=== PATIENT | male | born 1955 | race American Indian/Alaskan Native ===

== ENCOUNTER 2018-01-31 13:03 | Emergency (ER) | payer OTHER ==
[~2018-01-31] VITALS: Ht 160 cm; Wt 73.9 kg
[~2018-01-31 13:03] MED LIST: AMOX875 PO; ASPI325 PO; ATOR10 PO; ATOR40TA PO; BP MED; BUPR150ER PO; CILO100 PO; CIPR500 PO; CYCL10 PO; Cipro500 MG PO; FAMO20 PO; FURO20 PO; HYDACE5 PO; HYDCHL25 PO; IBUP800 PO; LISI20 PO; LORA1 PO; Loperamide2 MG PO; NAPR500 PO; NAPR550 PO; NICO21TP TOP; ONDA8ODT MM; OXYACE5T PO; PANT40 PO; Potassium Chlo20 ME1 PO; ROBITUSSIN OTC; RXCYCL10 PO; RXHYDACE PO; RXTRAM50 PO; SUCR1 PO; SULTRIDS PO; TAMS.4ER PO; TERB250; TRAM50 PO; TYLENOL
[2018-01-31 18:12] LABS: Adenovirus F 40/41 Not Detected (NOT DETECT); Astrovirus Not Detected (NOT DETECT); Campylobacter Sp Not Detected (NOT DETECT); Cryptosporidium Not Detected (NOT DETECT); Cyclospora Cayetanensis Not Detected (NOT DETECT); E. Coli O157 Not Detected (NOT DETECT); Entamoeba Histolytica Not Detected (NOT DETECT); Enterotoxigenic E. coli-ETEC Not Detected (NOT DETECT); Giardia Lamblia Not Detected (NOT DETECT); Norovirus GI/GII Not Detected (NOT DETECT); Plesiomonas Shigelloides Not Detected (NOT DETECT); Rotavirus A Not Detected (NOT DETECT); Salmonella Sp Not Detected (NOT DETECT); Sapovirus Not Detected (NOT DETECT); Shiga Toxin-prod E. coli-STEC Not Detected (NOT DETECT); Shigella/Enteroin E. coli-EIEC Not Detected (NOT DETECT); Vibrio Cholerae Not Detected (NOT DETECT); Vibrio Sp Not Detected (NOT DETECT); Yersinia Enterocolitica Not Detected (NOT DETECT)
[2018-01-31] MEDS ORDERED: TAMS.4ER PO (19:29)
[2018-01-31 20:24] LABS: Enteroaggregative E. coli-EAEC Detected (NOT DETECT); Enteropathogenic E. coli-EPEC Detected (NOT DETECT)
[2018-01-31] MEDS ORDERED: ONDA4ODT MM (21:06)
[2018-01-31] MEDS ORDERED: Zithromax250 MG PO (21:06)
== END 2018-01-31 21:15 | disposition home or self-care (01) ==
LOC: ER 13:03
PROVIDERS: Physician Assistant
DX: A04.4 Other intestinal Escherichia coli infections (principal); I10 Essential (primary) hypertension; F17.210 Nicotine dependence, cigarettes, uncomplicated; Z79.899 Other long term (current) drug therapy; Z79.82 Long term (current) use of aspirin; Z86.73 Personal history of transient ischemic attack (TIA), and cerebral infarction without residual deficits
CPT/HCPCS: 87507; 99284

== ENCOUNTER 2018-02-06 17:33 | Emergency (ER) | payer OTHER ==
[~2018-02-06] VITALS: Ht 160 cm; Wt 73.9 kg
[~2018-02-06 17:33] MED LIST changes: +ONDA4ODT MM; +Zithromax250 MG PO
[2018-02-06] MEDS ORDERED: LOPE2C PO (18:34)
[2018-02-06] MEDS ORDERED: LEVFLO500 PO (18:34)
== END 2018-02-06 19:55 | disposition home or self-care (01) ==
LOC: ER 17:33
DX: A04.4 Other intestinal Escherichia coli infections (principal); I10 Essential (primary) hypertension; F17.210 Nicotine dependence, cigarettes, uncomplicated; Z79.899 Other long term (current) drug therapy; Z79.82 Long term (current) use of aspirin; Z86.73 Personal history of transient ischemic attack (TIA), and cerebral infarction without residual deficits
CPT/HCPCS: 99283

== ENCOUNTER → 2018-02-18 | Outpatient (CLI) | payer OTHER ==
[~2018-02-18] MED LIST changes: +LEVFLO500 PO; +LOPE2C PO; +Vancocin HCl125 MG PO
[2018-02-18 15:23] LABS: Adenovirus F 40/41 Not Detected (NOT DETECT); Astrovirus Not Detected (NOT DETECT); Campylobacter Sp Not Detected (NOT DETECT); Cryptosporidium Not Detected (NOT DETECT); Cyclospora Cayetanensis Not Detected (NOT DETECT); E. Coli O157 Not Detected (NOT DETECT); Entamoeba Histolytica Not Detected (NOT DETECT); Enteroaggregative E. coli-EAEC Not Detected (NOT DETECT); Enteropathogenic E. coli-EPEC Not Detected (NOT DETECT); Enterotoxigenic E. coli-ETEC Not Detected (NOT DETECT); Giardia Lamblia Not Detected (NOT DETECT); Norovirus GI/GII Not Detected (NOT DETECT); Plesiomonas Shigelloides Not Detected (NOT DETECT); Rotavirus A Not Detected (NOT DETECT); Salmonella Sp Not Detected (NOT DETECT); Sapovirus Not Detected (NOT DETECT); Shiga Toxin-prod E. coli-STEC Not Detected (NOT DETECT); Shigella/Enteroin E. coli-EIEC Not Detected (NOT DETECT); Vibrio Cholerae Not Detected (NOT DETECT); Vibrio Sp Not Detected (NOT DETECT); Yersinia Enterocolitica Not Detected (NOT DETECT)
== END | disposition home or self-care (01) ==
LOC: LAB SHORT 14:28 → LAB 14:28 → EDSTATUS 02-18 13:35 → LAB FUT 02-18 13:35
PROVIDERS: Emergency Medicine
DX: K52.9 Noninfective gastroenteritis and colitis, unspecified (principal); B96.20 Unspecified Escherichia coli [E. coli] as the cause of diseases classified elsewhere
CPT/HCPCS: 87507

== ENCOUNTER 2018-02-26 17:06 | Emergency (ER) | payer OTHER ==
[~2018-02-26] VITALS: Ht 160 cm; Wt 44.5 kg
[~2018-02-26 17:06] MED LIST changes: -Vancocin HCl125 MG PO
[2018-02-26 18:52] LABS: BASOPHILS ABSOLUTE AUTO 0.02 K/mm3 (0.00-0.23); BASOPHILS PERCENT AUTO 0 % (0-2); EOSINOPHILS ABSOLUTE AUTO 0.06 K/mm3 (0.00-0.68); EOSINOPHILS PERCENT AUTO 1 % (0-6); Hematocrit 49.1 % (37.0-53.0); Hemoglobin 15.8 g/dL (13.5-17.5); IMMATURE GRAN ABSOLUTE AUTO 0.03 K/mm3 (0.00-0.10); IMMATURE GRAN PERCENT AUTO 0 % (0-1); LYMPHOCYTES ABSOLUTE AUTO 1.35 K/mm3 (0.84-5.20); LYMPHOCYTES PERCENT AUTO 16 % (21-46); MONOCYTES ABSOLUTE AUTO 0.58 K/mm3 (0.16-1.47); MONOCYTES PERCENT AUTO 7 % (4-13); Mean Corpuscular HGB 30.3 pg (26.0-34.0); Mean Corpuscular HGB Conc 32.2 g/dL (31.5-36.5); Mean Corpuscular Volume 94 fL (80-100); Mean Platelet Volume 12.4 fL (9.1-12.4); NEUTROPHILS ABSOLUTE AUTO 6.17 K/mm3 (1.96-9.15); NEUTROPHILS PERCENT AUTO 75 % (41-73); Platelet Count 212 K/mm3 (150-400); RDW Coefficient Variation 14.6 % (11.7-14.2); RDW Standard Deviation 51.1 fL (35.1-46.3); Red Blood Cell Count 5.21 M/mm3 (4.30-5.90); White Blood Cell Count 8.21 K/mm3 (4.00-11.30)
[2018-02-26 19:02] LABS: Alanine Aminotransfer (ALT/SGP 32 U/L (12-78); Albumin, Blood 3.6 g/dL (3.4-5.0); Albumin/Globulin Ratio 0.9 (0.8-1.8); Alk Phos 113 U/L (50-136); Anion Gap 7 mmol/L (6-16); Aspartate Aminotrans (AST/SGOT 23 U/L (12-37); Bilirubin, Total 0.9 mg/dL (0.1-1.0); Blood Urea Nitrogen 12 mg/dL (8-24); Bun/Creatinine Ratio 17.5 (12.0-20.0); CO2, Blood 25 mmol/L (21-32); Calcium, Blood 8.8 mg/dL (8.5-10.1); Chloride, Blood 104 mmol/L (98-108); Creatinine, Blood 0.69 mg/dL (0.60-1.20); Globulin, Blood 3.8 g/dL (2.2-4.0); Glomerular Filtration Rate >60 (60-); Glucose, Blood 159 mg/dL (70-99); Potassium, Blood 3.8 mmol/L (3.5-5.5); Sodium, Blood 136 mmol/L (136-145); Total Protein, Blood 7.4 g/dL (6.4-8.2)
[2018-02-26] MEDS ORDERED: Vancocin HCl125 MG PO (23:28)
== END 2018-02-26 22:07 | disposition home or self-care (01) ==
LOC: ER 17:06
PROVIDERS: Physician Assistant
DX: A04.72 Enterocolitis due to Clostridium difficile, not specified as recurrent (principal); Z79.899 Other long term (current) drug therapy; Z79.82 Long term (current) use of aspirin; I10 Essential (primary) hypertension; Z86.73 Personal history of transient ischemic attack (TIA), and cerebral infarction without residual deficits; F17.210 Nicotine dependence, cigarettes, uncomplicated
CPT/HCPCS: 36415; 80053; 85025; 87493; 99284

== ENCOUNTER → 2018-11-25 | Outpatient (CLI) | payer OTHER ==
[~2018-11-25] MED LIST changes: +Vancocin HCl125 MG PO
== END | disposition home or self-care (01) ==
LOC: OLS 15:25 → LAB SHORT 15:25 → LAB FUT 11-24 18:25
DX: N18.2 Chronic kidney disease, stage 2 (mild) (principal); D63.1 Anemia in chronic kidney disease; E55.9 Vitamin D deficiency, unspecified; E78.00 Pure hypercholesterolemia, unspecified; R76.9 Abnormal immunological finding in serum, unspecified; R94.5 Abnormal results of liver function studies; R94.6 Abnormal results of thyroid function studies
CPT/HCPCS: 87015; 87045; 87046; 87205; 87493; 87899

== ENCOUNTER → 2018-12-24 | Outpatient (CLI) | payer OTHER ==
[2018-12-24 20:18] LABS: Protein, Urine Quantitative 7.5 mg/dL (0.0-11.9)
[2018-12-24 20:21] LABS: Creatinine Urine 63.3 mg/dL (27.00-270.00); Microalbumin, Urine Quant. 7.55 mg/L (0.000-20.000)
== END | disposition home or self-care (01) ==
LOC: LAB SHORT 17:30 → OLS 17:30
PROVIDERS: Internal Medicine Nephrology
DX: N18.2 Chronic kidney disease, stage 2 (mild) (principal); D63.1 Anemia in chronic kidney disease; N40.1 Benign prostatic hyperplasia with lower urinary tract symptoms
CPT/HCPCS: 81050; 82043; 82570; 84156

== ENCOUNTER → 2018-12-24 | Outpatient (CLI) | payer OTHER ==
[2018-12-24 18:00] LABS: Adenovirus F 40/41 Not Detected (NOT DETECT); Astrovirus Not Detected (NOT DETECT); Campylobacter Sp Not Detected (NOT DETECT); Cryptosporidium Not Detected (NOT DETECT); Cyclospora Cayetanensis Not Detected (NOT DETECT); E. Coli O157 Not Detected (NOT DETECT); Entamoeba Histolytica Not Detected (NOT DETECT); Enteroaggregative E. coli-EAEC Not Detected (NOT DETECT); Enteropathogenic E. coli-EPEC Not Detected (NOT DETECT); Enterotoxigenic E. coli-ETEC Not Detected (NOT DETECT); Giardia Lamblia Not Detected (NOT DETECT); Norovirus GI/GII Not Detected (NOT DETECT); Plesiomonas Shigelloides Not Detected (NOT DETECT); Rotavirus A Not Detected (NOT DETECT); Salmonella Sp Not Detected (NOT DETECT); Sapovirus Not Detected (NOT DETECT); Shiga Toxin-prod E. coli-STEC Not Detected (NOT DETECT); Shigella/Enteroin E. coli-EIEC Not Detected (NOT DETECT); Vibrio Cholerae Not Detected (NOT DETECT); Vibrio Sp Not Detected (NOT DETECT); Yersinia Enterocolitica Not Detected (NOT DETECT)
== END | disposition home or self-care (01) ==
LOC: LAB SHORT 09:00 → OLS 09:00
PROVIDERS: Internal Medicine Gastroenterology
DX: R10.13 Epigastric pain (principal); R19.7 Diarrhea, unspecified
CPT/HCPCS: 0097U; 87324

== ENCOUNTER 2019-07-22 13:13 | Emergency (ER) | payer OTHER ==
[~2019-07-22] VITALS: Ht 160 cm; Wt 84.4 kg
[~2019-07-22 13:13] MED LIST changes: +THERA1 EACH PO
[2019-07-22 15:25] LABS: BASOPHILS ABSOLUTE AUTO 0.04 K/mm3 (0.00-0.23); BASOPHILS PERCENT AUTO 0 % (0-2); EOSINOPHILS ABSOLUTE AUTO 0.08 K/mm3 (0.00-0.68); EOSINOPHILS PERCENT AUTO 1 % (0-6); Hematocrit 52.7 % (37.0-53.0); Hemoglobin 17.2 g/dL (13.5-17.5); IMMATURE GRAN ABSOLUTE AUTO 0.12 K/mm3 (0.00-0.10); IMMATURE GRAN PERCENT AUTO 1 % (0-1); LYMPHOCYTES ABSOLUTE AUTO 1.49 K/mm3 (0.84-5.20); LYMPHOCYTES PERCENT AUTO 14 % (21-46); MONOCYTES ABSOLUTE AUTO 0.78 K/mm3 (0.16-1.47); MONOCYTES PERCENT AUTO 7 % (4-13); Mean Corpuscular HGB 30.6 pg (26.0-34.0); Mean Corpuscular HGB Conc 32.6 g/dL (31.5-36.5); Mean Corpuscular Volume 94 fL (80-100); Mean Platelet Volume 12.3 fL (9.1-12.4); NEUTROPHILS ABSOLUTE AUTO 8.12 K/mm3 (1.96-9.15); NEUTROPHILS PERCENT AUTO 76 % (41-73); Platelet Count 238 K/mm3 (150-400); RDW Coefficient Variation 15.9 % (11.7-14.2); RDW Standard Deviation 55.2 fL (35.1-46.3); Red Blood Cell Count 5.63 M/mm3 (4.30-5.90); White Blood Cell Count 10.63 K/mm3 (4.00-11.30)
[2019-07-22 15:47] LABS: Alanine Aminotransfer (ALT/SGP 50 U/L (12-78); Albumin, Blood 4.1 g/dL (3.4-5.0); Alk Phos 91 U/L (50-136); Anion Gap 6 mmol/L (6-16); Aspartate Aminotrans (AST/SGOT 24 U/L (12-37); Bilirubin, Total 0.6 mg/dL (0.1-1.0); Blood Urea Nitrogen 18 mg/dL (8-24); Bun/Creatinine Ratio 22.7 (12.0-20.0); CO2, Blood 28 mmol/L (21-32); Calcium, Blood 9.9 mg/dL (8.5-10.1); Chloride, Blood 101 mmol/L (98-108); Creatinine, Blood 0.79 mg/dL (0.60-1.20); Globulin, Blood 4.1 g/dL (2.2-4.0); Glomerular Filtration Rate >60 (60-); Glucose, Blood 108 mg/dL (70-99); Potassium, Blood 3.5 mmol/L (3.5-5.5); Sodium, Blood 135 mmol/L (136-145); Total Protein, Blood 8.2 g/dL (6.4-8.2)
[2019-07-22 16:55] LABS: Source, Urine Clean Catch
[2019-07-22 17:01] LABS: Appearance, Urine Clear (Clear); Bilirubin, Urine Neg (Neg); Blood, Urine Neg (Neg); Color, Urine Yellow (P-Yellow); Glucose Qualitative, Urine Neg (Neg); Ketones, Urine Neg (Neg); Leukocyte Esterase, Urine Neg (Neg); Nitrite, Urine Neg (Neg); Protein, Urine Neg (Neg); Specific Gravity, Urine 1.005 (1.003-1.022); Urobilinogen, Urine NORM (Normal)
[2019-07-22] MEDS ORDERED: Norco 5-325 Ta1 EACH PO (18:16)
== END 2019-07-22 18:39 | disposition home or self-care (01) ==
LOC: ER 13:13
PROVIDERS: Physician Assistant
DX: K52.9 Noninfective gastroenteritis and colitis, unspecified (principal); Z86.73 Personal history of transient ischemic attack (TIA), and cerebral infarction without residual deficits; Z79.899 Other long term (current) drug therapy
CPT/HCPCS: 36415; 74176; 80053; 81003; 83690; 85025; 96374; 99284-25; J2405; J7030

== ENCOUNTER 2020-05-26 18:47 | Emergency (ER) | payer OTHER ==
[~2020-05-26] VITALS: Ht 160 cm; Wt 84.8 kg
[~2020-05-26 18:47] MED LIST changes: +Norco 5-325 Ta1 EACH PO
[2020-05-26] MEDS ORDERED: CYCL10 PO (22:04)
== END 2020-05-26 22:46 | disposition home or self-care (01) ==
LOC: ER 18:47
DX: M54.5 Low back pain (principal); F17.210 Nicotine dependence, cigarettes, uncomplicated; Z79.899 Other long term (current) drug therapy
CPT/HCPCS: 72070; 72100; 99283-25; A9270

== ENCOUNTER 2020-07-11 20:45 | Emergency (ER) | payer OTHER ==
[~2020-07-11] VITALS: Ht 160 cm; Wt 81.2 kg
[2020-07-11 21:00] LABS: BASOPHILS ABSOLUTE AUTO 0.04 K/mm3 (0.00-0.23); BASOPHILS PERCENT AUTO 1 % (0-2); EOSINOPHILS ABSOLUTE AUTO 0.09 K/mm3 (0.00-0.68); EOSINOPHILS PERCENT AUTO 1 % (0-6); Hematocrit 48.2 % (37.0-53.0); Hemoglobin 15.9 g/dL (13.5-17.5); IMMATURE GRAN ABSOLUTE AUTO 0.07 K/mm3 (0.00-0.10); IMMATURE GRAN PERCENT AUTO 1 % (0-1); LYMPHOCYTES ABSOLUTE AUTO 1.55 K/mm3 (0.84-5.20); LYMPHOCYTES PERCENT AUTO 19 % (21-46); MONOCYTES ABSOLUTE AUTO 0.56 K/mm3 (0.16-1.47); MONOCYTES PERCENT AUTO 7 % (4-13); Mean Corpuscular HGB 30.8 pg (26.0-34.0); Mean Corpuscular Volume 93 fL (80-100); Mean Platelet Volume 11.3 fL (9.1-12.4); NEUTROPHILS ABSOLUTE AUTO 6.01 K/mm3 (1.96-9.15); NEUTROPHILS PERCENT AUTO 72 % (41-73); Platelet Count 192 K/mm3 (150-400); RDW Coefficient Variation 15.8 % (11.7-14.2); RDW Standard Deviation 54.5 fL (35.1-46.3); Red Blood Cell Count 5.17 M/mm3 (4.30-5.90); White Blood Cell Count 8.32 K/mm3 (4.00-11.30)
[2020-07-11 21:18] LABS: Alanine Aminotransfer (ALT/SGP 36 U/L (12-78); Albumin, Blood 3.7 g/dL (3.4-5.0); Alk Phos 101 U/L (50-136); Anion Gap 5 mmol/L (6-16); Aspartate Aminotrans (AST/SGOT 24 U/L (12-37); Bilirubin, Total 0.5 mg/dL (0.1-1.0); Blood Urea Nitrogen 15 mg/dL (8-24); Bun/Creatinine Ratio 19.4 (12.0-20.0); CO2, Blood 26 mmol/L (21-32); Calcium, Blood 9.4 mg/dL (8.5-10.1); Chloride, Blood 108 mmol/L (98-108); Creatinine, Blood 0.77 mg/dL (0.60-1.20); Globulin, Blood 3.6 g/dL (2.2-4.0); Glomerular Filtration Rate >60 (60-); Glucose, Blood 155 mg/dL (70-99); Potassium, Blood 3.8 mmol/L (3.5-5.5); Sodium, Blood 139 mmol/L (136-145); Total Protein, Blood 7.3 g/dL (6.4-8.2)
[2020-07-11] MEDS ORDERED: Prednisone50 MG PO (22:36)
== END 2020-07-11 23:05 | disposition home or self-care (01) ==
LOC: ER 20:45
PROVIDERS: Emergency Medicine
DX: G51.0 Bell's palsy (principal); I10 Essential (primary) hypertension; F17.210 Nicotine dependence, cigarettes, uncomplicated; Z86.73 Personal history of transient ischemic attack (TIA), and cerebral infarction without residual deficits; Z79.899 Other long term (current) drug therapy
CPT/HCPCS: 70450; 71045; 80053; 85025; 93005; 93010; 99285-25; A9270; J7512

== ENCOUNTER 2021-04-14 17:09 | Emergency (ER) | payer OTHER ==
[~2021-04-14] VITALS: Ht 160 cm; Wt 68.0 kg
[~2021-04-14 17:09] MED LIST changes: +Prednisone50 MG PO
[2021-04-14] MEDS ORDERED: Triamcinolone A15 G3 TOP (17:19)
[2021-04-14] MEDS ORDERED: Prednisone20 MG PO ×2 (17:19→17:40)
[2021-04-14] MEDS ORDERED: TRIA15CR3 TOP (17:40)
== END 2021-04-14 17:54 | disposition home or self-care (01) ==
LOC: ER 17:09
DX: L25.9 Unspecified contact dermatitis, unspecified cause (principal); F17.200 Nicotine dependence, unspecified, uncomplicated; Z86.73 Personal history of transient ischemic attack (TIA), and cerebral infarction without residual deficits; Z79.899 Other long term (current) drug therapy
CPT/HCPCS: 99282; A9270; J7512

== ENCOUNTER → 2021-09-02 | Outpatient (CLI) | payer OTHER ==
[~2021-09-02] MED LIST changes: +Prednisone20 MG PO; +TRIA15CR3 TOP; +Triamcinolone A15 G3 TOP
== END | disposition home or self-care (01) ==
LOC: LAB SHORT 13:40 → PLD 13:40
DX: K11.8 Other diseases of salivary glands (principal)
CPT/HCPCS: 88173

== ENCOUNTER 2021-10-23 07:38 | Day surgery (SDC) | payer MEDICARE, OTHER ==
[~2021-10-23] VITALS: Ht 160 cm; Wt 71.7 kg
[2021-10-23] MEDS ORDERED: ATOR20 (08:31)
[2021-10-23] MEDS ORDERED: HYDCHL25 PO (08:31)
--- NOTE | 2021-10-23 10:52 | NUR ---
10/23/21 1052 Cheryl Aguirre 50 MLS OF NACL MIXED W/ 0.25 MLS OF EPI PER ORDER TO MAKE EPI 1:200,000 FOR INJECTION AT [facility] BY DR. GROVER. 4 MLS OF EPI 1:200,000 INJECTED AT [facility].
--- NOTE | 2021-10-23 11:53 | NUR ---
10/23/21 1153 NANDO LOW TRIAL DOWN TO 5 LITER FACE VENT
--- NOTE | 2021-10-23 12:12 | NUR ---
10/23/21 1212 NANDO LOW PAIN 10/26 - 50MCG FENTANYL GIVEN IV PUSH.
== END 2021-10-23 13:06 | disposition home or self-care (01) ==
LOC: ORSCSDS 07:38
PROVIDERS: Otolaryngology
PROC: 0CB Mouth and Throat, Excision (ICD-10-PCS; principal; 2021-10-23 09:00)
DX: D11.0 Benign neoplasm of parotid gland (principal); F17.210 Nicotine dependence, cigarettes, uncomplicated; G51.0 Bell's palsy; I10 Essential (primary) hypertension; G47.33 Obstructive sleep apnea (adult) (pediatric); I73.9 Peripheral vascular disease, unspecified; Z86.73 Personal history of transient ischemic attack (TIA), and cerebral infarction without residual deficits; Z79.899 Other long term (current) drug therapy
CPT/HCPCS: 88307; A9270; J0171; J1100; J2250; J2405; J2704; J3010; J7120

== ENCOUNTER 2021-10-23 21:21 | Emergency (ER) | payer MEDICARE, OTHER ==
[~2021-10-23] VITALS: Ht 160 cm; Wt 73.5 kg
[~2021-10-23 21:21] MED LIST changes: +ATOR20
== END 2021-10-24 02:25 | disposition home or self-care (01) ==
LOC: ER 21:21
DX: Z48.03 Encounter for change or removal of drains (principal); F17.200 Nicotine dependence, unspecified, uncomplicated; Z86.73 Personal history of transient ischemic attack (TIA), and cerebral infarction without residual deficits; Z79.899 Other long term (current) drug therapy; Z79.52 Long term (current) use of systemic steroids
CPT/HCPCS: 99282

== ENCOUNTER → 2022-06-17 | Outpatient (CLI) | payer MEDICARE, OTHER ==
[~2022-06-17] MED LIST changes: +HYDR1TAB94 PO; +IBUP600 PO
[2022-06-17 14:15] LABS: Adenovirus F 40/41 Not Detected (NOT DETECT); Astrovirus Not Detected (NOT DETECT); Campylobacter Sp Not Detected (NOT DETECT); Cryptosporidium Not Detected (NOT DETECT); Cyclospora Cayetanensis Not Detected (NOT DETECT); E. Coli O157 Not Detected (NOT DETECT); Entamoeba Histolytica Not Detected (NOT DETECT); Enteroaggregative E. coli-EAEC Not Detected (NOT DETECT); Enteropathogenic E. coli-EPEC Not Detected (NOT DETECT); Enterotoxigenic E. coli-ETEC Not Detected (NOT DETECT); Giardia Lamblia Not Detected (NOT DETECT); Norovirus GI/GII Not Detected (NOT DETECT); Plesiomonas Shigelloides Not Detected (NOT DETECT); Rotavirus A Not Detected (NOT DETECT); Salmonella Sp Not Detected (NOT DETECT); Sapovirus Not Detected (NOT DETECT); Shiga Toxin-prod E. coli-STEC Not Detected (NOT DETECT); Shigella/Enteroin E. coli-EIEC Not Detected (NOT DETECT); Vibrio Cholerae Not Detected (NOT DETECT); Vibrio Sp Not Detected (NOT DETECT); Yersinia Enterocolitica Not Detected (NOT DETECT)
== END | disposition home or self-care (01) ==
LOC: LAB 10:16 → LAB SHORT 10:16
PROVIDERS: Internal Medicine Gastroenterology
DX: R19.7 Diarrhea, unspecified (principal)
CPT/HCPCS: 87507

== ENCOUNTER 2023-04-07 16:26 | Emergency (ER) | payer MEDICARE, OTHER ==
[~2023-04-07] VITALS: Ht 160 cm; Wt 78.5 kg
[2023-04-07 16:37] VITALS: BP 164/115
[2023-04-07 17:22] LABS: BASOPHILS ABSOLUTE AUTO 0.06 K/mm3 (0.00-0.23); BASOPHILS PERCENT AUTO 1 % (0-2); EOSINOPHILS ABSOLUTE AUTO 0.14 K/mm3 (0.00-0.68); EOSINOPHILS PERCENT AUTO 2 % (0-6); Hematocrit 49.3 % (37.0-53.0); Hemoglobin 16.4 g/dL (13.5-17.5); IMMATURE GRAN ABSOLUTE AUTO 0.05 K/mm3 (0.00-0.10); IMMATURE GRAN PERCENT AUTO 1 % (0-1); LYMPHOCYTES ABSOLUTE AUTO 2.37 K/mm3 (0.84-5.20); LYMPHOCYTES PERCENT AUTO 26 % (21-46); MONOCYTES ABSOLUTE AUTO 0.63 K/mm3 (0.16-1.47); MONOCYTES PERCENT AUTO 7 % (4-13); Mean Corpuscular HGB 30.9 pg (26.0-34.0); Mean Corpuscular HGB Conc 33.3 g/dL (31.5-36.5); Mean Corpuscular Volume 93 fL (80-100); Mean Platelet Volume 11.9 fL (9.1-12.4); NEUTROPHILS PERCENT AUTO 64 % (41-73); Platelet Count 206 K/mm3 (150-400); RDW Standard Deviation 51.2 fL (35.1-46.3); Red Blood Cell Count 5.31 M/mm3 (4.30-5.90); White Blood Cell Count 9.05 K/mm3 (4.00-11.30)
[2023-04-07 17:47] LABS: Albumin, Blood 3.8 g/dL (3.4-5.0); Bilirubin, Total 0.7 mg/dL (0.1-1.0); Bun/Creatinine Ratio 19.5 (12.0-20.0); Calcium, Blood 9.3 mg/dL (8.5-10.1); Creatinine, Blood 0.72 mg/dL (0.60-1.20); Globulin, Blood 3.7 g/dL (2.2-4.0); Potassium, Blood 3.4 mmol/L (3.5-5.5); Total Protein, Blood 7.5 g/dL (6.4-8.2)
[2023-04-07 18:02] LABS: International Normalized Ratio 1.09; Prothrombin Time Results 11.4 Sec (9.7-11.5)
== END 2023-04-07 21:45 | disposition home or self-care (01) ==
LOC: ER 16:26
PROVIDERS: Physician Assistant
DX: I73.9 Peripheral vascular disease, unspecified (principal); F17.210 Nicotine dependence, cigarettes, uncomplicated; Z79.899 Other long term (current) drug therapy; Z79.52 Long term (current) use of systemic steroids; I87.2 Venous insufficiency (chronic) (peripheral); I83.93 Asymptomatic varicose veins of bilateral lower extremities; I08.0 Rheumatic disorders of both mitral and aortic valves
CPT/HCPCS: 80053; 85025; 85610; 93306; 93970; 99283

== ENCOUNTER 2023-09-08 08:57 | Day surgery (SDC) | payer MEDICARE, OTHER ==
[2023-09-08] VITALS (12 sets, daily range): BP systolic 97–153; BP diastolic 65–131
[~2023-09-08] VITALS: Ht 162.6 cm; Wt 74.4 kg
[~2023-09-08 08:57] MED LIST changes: +ASPI81CH PO
[2023-09-08] MEDS ORDERED: NS 500 ML IV ONE (09:12)
[2023-09-08] MEDS ORDERED: Heparin Sodium 1000 Units/ML 10ML MDV ONE ×3 (09:13→12:35)
[2023-09-08] MEDS ORDERED: Nitroglycerin 2 MG/20 ML BTL ONE (09:13)
[2023-09-08] MEDS ORDERED: NS 1,000 ML IV ONE ×2 (09:13→10:17)
[2023-09-08] MEDS ORDERED: FentaNYL Citrate 50 MCG/ML 2 ML Injection ONE ×3 (10:17→14:19)
[2023-09-08] MEDS ORDERED: Midazolam HCl 1MG / ML 2ML Vial ONE ×2 (10:17→11:21)
[2023-09-08] MEDS ORDERED: HydrALAZINE HCl 20 MG / ML 1ML Vial ONE (11:45)
--- NOTE | 2023-09-08 12:17 | NUR ---
pt back to recovery from lab. pt a&oX4. groin soft and non-tender. no bleeding noted. pt given sip of water and coffee.
--- NOTE | 2023-09-08 12:31 | NUR ---
son at bedside. groin site soft and non-tender per pt. no bleeding noted.
--- NOTE | 2023-09-08 12:35 | NUR ---
unable to find pulses in l foot. pt co pain in l foot. dr merchant notified and reevaluated pt. dr merchant ordered 5000 unites of heparin ivp given by akci scanlon.
--- NOTE | 2023-09-08 13:05 | NUR ---
PT PULSE FOUND IN L FOOT VIA DOPPLER. UNABLE TO FIND DP PULSE IN L FOOT. GROIN SITE SOFT AND NON-TENDER PER PT. NO BLEEDING NOTED.
--- NOTE | 2023-09-08 13:15 | NUR ---
PT ASSISTED W/ URINAL.
--- NOTE | 2023-09-08 13:59 | NUR ---
HEPARIN 1000 UNITS IV ADMINISTERD AT 1400 BY MARINE Kwon RN. PER MARINE Kwon RN RIGHT GROIN SOFT NON-TENDER WITH NO HEMATOMA, NO BLEEDING. HOB UP TO 30 DEGREES.
--- NOTE | 2023-09-08 14:33 | NUR ---
PT C/O BACK PAIN SEE NEW ORDERS.
--- NOTE | 2023-09-08 14:41 | NUR ---
pt back to recovery from lab. pt a&o. bilat sheaths in place.
--- NOTE | 2023-09-08 14:43 | NUR ---
left sheath pulled at 1441. may holding pressure
--- NOTE | 2023-09-08 14:46 | NUR ---
dr merchant at bedside. 2000 units of heparing oreders by dr merchant and given by sarabjit scanlon. dr merchant able to find proximal left dp pulse but still unable to find dp pulse in foot. dr merchant will reevaluate the need to bring pt back into lab.
--- NOTE | 2023-09-08 15:38 | NUR ---
dp pulse found in left foot via doppler by kaci scanlon. dr merchant came by to reassess. dr merchant wants to monitor pt longer then will reassess. pt up to use restroom and now sitting in chair.
--- NOTE | 2023-09-08 16:10 | NUR ---
dr merchant at bedside to reassess pt. pulses found in left foot. dr merchant ok to send pt home.
--- NOTE | 2023-09-08 17:01 | NUR ---
pt given d/c instructions and verbalized understanding. pt changed. iv out. pt given xarelto sample from office from dr merchant w/ instructions to take 15mg tab twice daily until 3 days prior to next procedure on the 21 of september. pt verbalized understanding. pt also informed to stop taking aspirin 3 days prior to next procedure as well. groin site soft and non-tender per pt. pt reports left foot feeling better and denies any pain or discomfort to left foot. no bleeding noted to groin site. pt taken to [facility] via [place]. son to take pt home.
== END 2023-09-08 22:45 | disposition home or self-care (01) ==
LOC: MHTC 08:57 → ORSCMMR 08:58 → MHTC 09:00
DX: I73.9 Peripheral vascular disease, unspecified (principal); I87.2 Venous insufficiency (chronic) (peripheral); I10 Essential (primary) hypertension; Z86.73 Personal history of transient ischemic attack (TIA), and cerebral infarction without residual deficits; F17.210 Nicotine dependence, cigarettes, uncomplicated; Z88.6 Allergy status to analgesic agent; Z88.8 Allergy status to other drugs, medicaments and biological substances
CPT/HCPCS: 37227; 75625; 75716; 75774; 76937; 99152; 99153; C1714; C1725; C1760; C1769; C1874; C1887; C1894; C2623; J0360; J1644; J2250; J3010; J7030; J7050; Q9967

== ENCOUNTER 2023-12-03 09:05 | Day surgery (SDC) | payer MEDICARE, OTHER ==
[~2023-12-03] VITALS: Ht 162.6 cm; Wt 73.9 kg
[2023-12-03] VITALS (9 sets, daily range): BP systolic 149–178; BP diastolic 67–113
[~2023-12-03 09:05] MED LIST changes: -ATOR20; +ATOR20 PO; +CLOP75 PO; +Lisinopril2.5 MG PO; +Voltaren100 GM TOP
[2023-12-03] MEDS ORDERED: METF500 PO (09:17)
[2023-12-03] MEDS ORDERED: NS 1,000 ML IV ONE (09:55)
[2023-12-03] MEDS ORDERED: NS 250 ML IV ONE (09:55)
[2023-12-03] MEDS ORDERED: Heparin Sodium 1000 Units/ML 10ML MDV ONE (09:55)
[2023-12-03] MEDS ORDERED: Midazolam HCl 1MG / ML 2ML Vial ONE (10:04)
[2023-12-03] MEDS ORDERED: NS 500 ML IV ONE (10:05)
[2023-12-03] MEDS ORDERED: FentaNYL Citrate 50 MCG/ML 2 ML Injection ONE (10:05)
[2023-12-03] MEDS ORDERED: Nitroglycerin 2 MG/20 ML BTL ONE (10:53)
--- NOTE | 2023-12-03 11:39 | NUR ---
PT RETURNED TO RECOVERY ROOM IN BED. RIGHT FEM GROIN SITE SOFT NON-TENDER WITH NO HEMATOMA, NO PULSATILE BLEEDING AND INTACT DRESSING. R PT PULSE DOPPLER. CALL LIGHT IN REACH.
--- NOTE | 2023-12-03 12:13 | NUR ---
NO CHANGES TO R FEM GROIN SITE. R PT PULSE STILL DOPPLER. HOB UP TO 45 DEGREES.
--- NOTE | 2023-12-03 12:53 | NUR ---
PT SITTING UP EATING LUMCH.
--- NOTE | 2023-12-03 12:54 | NUR ---
NO CHANGES TO R FEM GROIN SITE; STILL SOFT NON-TENDER WITH NO HEMATOMA,NO PULSATILE BLEEDING AND INTACT DRESSING.
--- NOTE | 2023-12-03 13:54 | NUR ---
R FEM GROIN SITE STILL SOFT NON-TENDER WITH NO HEMATOMA, NO PULSATILE BLEEDING AND INTACT DRESSING. 20 G IV DISCONTINUED FROM RIGHT AC WITH INTACT CANNULA. DISCHARGE INSTRUCTIONS REVIEWED ALL QUESTIONS ANSWERED. PT ESCORTED OUT VIA WHEELCHAIR ESCORT.R PT PULSE STILL DOPPLER.
== END 2023-12-03 13:55 | disposition home or self-care (01) ==
LOC: MHTC 09:05
DX: I70.223 Atherosclerosis of native arteries of extremities with rest pain, bilateral legs (principal); I87.2 Venous insufficiency (chronic) (peripheral); I25.10 Atherosclerotic heart disease of native coronary artery without angina pectoris; I10 Essential (primary) hypertension; F17.210 Nicotine dependence, cigarettes, uncomplicated; Z79.82 Long term (current) use of aspirin; Z79.899 Other long term (current) drug therapy
CPT/HCPCS: 37221; 37224; 37228; 75716; 75774; 76937; 99152; 99153; C1725; C1760; C1769; C1876; C1887; C1894; J1644; J2250; J3010; J7030; J7040; J7050; Q9967

== ENCOUNTER → 2024-05-11 | Outpatient (CLI) | payer MEDICARE, OTHER ==
[~2024-05-11] MED LIST changes: +METF500 PO
[2024-05-11 13:44] LABS: Adenovirus F 40/41 Not Detected (NOT DETECT); Astrovirus Not Detected (NOT DETECT); Campylobacter Sp Not Detected (NOT DETECT); Cryptosporidium Not Detected (NOT DETECT); Cyclospora Cayetanensis Not Detected (NOT DETECT); E. Coli O157 Not Detected (NOT DETECT); Entamoeba Histolytica Not Detected (NOT DETECT); Enteroaggregative E. coli-EAEC Not Detected (NOT DETECT); Enteropathogenic E. coli-EPEC Not Detected (NOT DETECT); Enterotoxigenic E. coli-ETEC Not Detected (NOT DETECT); Giardia Lamblia Not Detected (NOT DETECT); Norovirus GI/GII Not Detected (NOT DETECT); Plesiomonas Shigelloides Not Detected (NOT DETECT); Rotavirus A Not Detected (NOT DETECT); Salmonella Sp Not Detected (NOT DETECT); Sapovirus Not Detected (NOT DETECT); Shiga Toxin-prod E. coli-STEC Not Detected (NOT DETECT); Shigella/Enteroin E. coli-EIEC Not Detected (NOT DETECT); Vibrio Cholerae Not Detected (NOT DETECT); Vibrio Sp Not Detected (NOT DETECT); Yersinia Enterocolitica Not Detected (NOT DETECT)
[2024-05-13 16:52] LABS: PANCREATIC ELASTASE,FECAL 287 ug/g (>=100)
[2024-05-13 17:28] LABS: CALPROTECTIN,FECAL 16 ug/g (<=49)
== END | disposition home or self-care (01) ==
LOC: LAB 10:53 → LAB SHORT 10:53
PROVIDERS: Physician Assistant Medical
DX: R19.7 Diarrhea, unspecified (principal)
CPT/HCPCS: 82653; 83993; 87507

== ENCOUNTER 2024-08-14 18:42 | Emergency (ER) | payer MEDICARE, OTHER ==
[~2024-08-14] VITALS: Ht 162.6 cm; Wt 65.8 kg
[2024-08-14 18:57] VITALS: BP 144/81
[2024-08-14] MEDS ORDERED: CYCL10 PO (19:24)
[2024-08-14] MEDS ORDERED: Cyclobenzaprine HCl 10 MG Tab PO ONE (19:25)
== END 2024-08-14 19:32 | disposition home or self-care (01) ==
LOC: ER 18:42
DX: S76.311A Strain of muscle, fascia and tendon of the posterior muscle group at thigh level, right thigh, initial encounter (principal); F17.200 Nicotine dependence, unspecified, uncomplicated; Z79.02 Long term (current) use of antithrombotics/antiplatelets; Z79.84 Long term (current) use of oral hypoglycemic drugs; Z79.899 Other long term (current) drug therapy; X50.0XXA Overexertion from strenuous movement or load, initial encounter
CPT/HCPCS: 99283; A9270